=== PATIENT | female | born 1945 | race American Indian/Alaskan Native ===

== ENCOUNTER 2016-07-10 08:07 | Day surgery (SDC) | payer MEDICARE, BC ==
[2016-07-10] MEDS ORDERED: RIVA20TA PO (08:38)
[2016-07-10] MEDS ORDERED: DILT180C59 PO (08:38)
[2016-07-10] MEDS ORDERED: POTA20TA6 PO (08:38)
[2016-07-10] MEDS ORDERED: FURO-93 PO (08:38)
[2016-07-10] MEDS ORDERED: PANT20TA2 PO (08:38)
[2016-07-10 09:13] LABS: BLOOD UREA NITROGEN 21 mg/dL (7-18)
[2016-07-10] MEDS ORDERED: PROPOFOL 10 MG/ML, 20ML ONE (10:14)
== END 2016-07-10 11:31 | disposition home or self-care (01) ==
LOC: CACL 08:07
PROVIDERS: ATTEND Internal Medicine Cardiovascular Disease
DX: I48.2 Chronic atrial fibrillation (principal); Z79.01 Long term (current) use of anticoagulants; I11.9 Hypertensive heart disease without heart failure
CPT/HCPCS: 36415; 80048; 85025; 92960; 93005; J2704

== ENCOUNTER → 2017-10-09 | Outpatient (CLI) | payer MEDICARE, BC ==
[~2017-10-09] MED LIST: DILT180C59 PO; FURO-93 PO; PANT20TA2 PO; POTA20TA6 PO; RIVA20TA PO
== END | disposition home or self-care (01) ==
LOC: CVU 14:31
PROVIDERS: ATTEND Internal Medicine Cardiovascular Disease
DX: I87.2 Venous insufficiency (chronic) (peripheral) (principal); R60.0 Localized edema; I34.0 Nonrheumatic mitral (valve) insufficiency
CPT/HCPCS: 93970

== ENCOUNTER 2018-02-19 09:55 | Day surgery (SDC) | payer MEDICARE, BC ==
[2018-02-19] MEDS ORDERED: SODIUM CHLORIDE 0.9% 1,000 ML IV SCH (10:30)
[2018-02-19] MEDS ORDERED: POTA20TA6 PO (10:33)
[2018-02-19] MEDS ORDERED: FURO-93 PO (10:33)
[2018-02-19] MEDS ORDERED: DILT180C59 PO (10:33)
[2018-02-19] MEDS ORDERED: PROPOFOL 10 MG/ML, 20ML ONE (11:31)
== END 2018-02-19 13:13 | disposition home or self-care (01) ==
LOC: CACL 09:55
PROVIDERS: ATTEND Internal Medicine Cardiovascular Disease
DX: I08.3 Combined rheumatic disorders of mitral, aortic and tricuspid valves (principal); I10 Essential (primary) hypertension; G47.30 Sleep apnea, unspecified; Z88.8 Allergy status to other drugs, medicaments and biological substances; Z79.899 Other long term (current) drug therapy; Z98.890 Other specified postprocedural states
CPT/HCPCS: 93312; 93321; 93325; J2704

== ENCOUNTER 2018-05-29 12:43 | Day surgery (SDC) | payer MEDICARE, BC ==
[~2018-05-29] VITALS: Ht 161.3 cm; Wt 76.4 kg
[2018-05-29 13:23] VITALS: BP 136/59
== END 2018-05-29 16:04 | disposition home or self-care (01) ==
LOC: CACL 12:43
PROVIDERS: ATTEND Internal Medicine Cardiovascular Disease
DX: I83.11 Varicose veins of right lower extremity with inflammation (principal); Z88.8 Allergy status to other drugs, medicaments and biological substances
CPT/HCPCS: 36482; C1894

== ENCOUNTER → 2018-05-30 | Outpatient (CLI) | payer MEDICARE, BC | END | disposition home or self-care (01) | LOC: CVU 08:46 | PROVIDERS: ATTEND Internal Medicine Cardiovascular Disease | DX: I87.2 Venous insufficiency (chronic) (peripheral) (principal) | CPT/HCPCS: 93971 ==

== ENCOUNTER 2018-08-28 12:33 | Day surgery (SDC) | payer MEDICARE, BC ==
[~2018-08-28] VITALS: Ht 162.6 cm; Wt 77.3 kg
[2018-08-28 13:02] VITALS: BP 125/61
[2018-08-28] MEDS ORDERED: LIDOCAINE 1%, 20ML ONE (13:32)
== END 2018-08-28 14:20 | disposition home or self-care (01) ==
LOC: CACL 12:33
PROVIDERS: ATTEND Internal Medicine Cardiovascular Disease
DX: I83.812 Varicose veins of left lower extremity with pain (principal); I83.12 Varicose veins of left lower extremity with inflammation; I10 Essential (primary) hypertension; I48.2 Chronic atrial fibrillation; I34.0 Nonrheumatic mitral (valve) insufficiency; Z88.1 Allergy status to other antibiotic agents
CPT/HCPCS: 36482; C1894

== ENCOUNTER 2018-08-29 12:22 | Outpatient (CLI) | payer MEDICARE, BC | END 2018-08-29 23:59 | disposition home or self-care (01) | LOC: CVU 12:22 | PROVIDERS: ATTEND Internal Medicine Cardiovascular Disease | DX: I83.812 Varicose veins of left lower extremity with pain (principal) | CPT/HCPCS: 93971 ==